=== PATIENT | female | born 1985 | race Caucasian/White ===

== ENCOUNTER 2023-08-26 14:01 | Emergency (ER) | payer SELFPAY ==
[~2023-08-26] VITALS: Ht 162.6 cm; Wt 75.0 kg
[2023-08-26 14:03] VITALS: O2SAT 100
[2023-08-26 15:01] LABS: BASOPHILS % 0.4 % (0.0-2.0); EOSINOPHILS % 0.2 % (0.0-5.0); HEMATOCRIT. 40.1 % (36.0-48.0); HEMOGLOBIN. 13.7 g/dL (12.0-16.0); LYMPHOCYTES % 9.4 % (20.0-50.0); MEAN CORPUSCULAR HEMOGLOBIN 31.8 pg (28.0-32.0); MEAN CORPUSCULAR HGB CONC 34.3 g/dL (31.0-37.0); MEAN CORPUSCULAR VOLUME 92.8 fL (81.0-99.0); MONOCYTES % 4.2 % (2.0-8.0); NEUTROPHILS % 85.8 % (40.0-76.0); RED BLOOD CELL COUNT 4.32 mill/uL (4.2-5.4); RED CELL DISTRIBUTION WIDTH 13.3 % (11.6-14.6); WHITE BLOOD COUNT 8.6 x1000/uL (4.5-11.0)
[2023-08-26 15:02] LABS: ACETAMINOPHEN < 2 ug/mL (10-30); CALCIUM 9.4 mg/dL (8.7-10.4); CARBON DIOXIDE 23 mEq/L (21-32); CHLORIDE 105 mEq/L (98-107); CREATININE 0.8 mg/dL (0.6-1.0); GLUCOSE 145 mg/dL (70-105); POTASSIUM 4.4 mEq/L (3.5-5.1); SODIUM 138 mEq/L (136-145); UREA NITROGEN BLOOD 14 mg/dL (9-23)
[2023-08-26 15:03] LABS: *AMPHETAMINES SCREEN URINE NEGATIVE (NEGATIVE); *BARBITURATES SCREEN URINE NEGATIVE (NEGATIVE); *BENZODIAZEPINES SCREEN URINE PRESUMPTIVE POSITIVE (NEGATIVE); *COCAINE SCREEN URINE NEGATIVE (NEGATIVE); CANNABINOID URINE SCREEN NEGATIVE (NEGATIVE); ECSTASY MDMA SCREEN URINE NEGATIVE (NEGATIVE); METHADONE URINE SCREEN Neg (NEGATIVE); OPIATES URINE SCREEN NEGATIVE (NEGATIVE); PHENCYCLIDINE URINE SCREEN NEGATIVE (NEGATIVE)
[2023-08-26 15:06] LABS: DIFFERENTIAL COMMENT 1
[2023-08-26 15:07] LABS: HCG SCREEN NEGATIVE
[2023-08-26 15:19] LABS: ETHANOL BLOOD < 10 mg/dL (<10)
[2023-08-26 15:26] LABS: PLATELET 253 x1000/uL (130-400)
[2023-08-26 15:27] LABS: MEAN PLATELET VOLUME 10.9 fl (7.4-10.4)
[2023-08-26] MEDS ORDERED: MELA5TAB19 MT (16:55)
[2023-08-26 17:40] VITALS: BP 120/78; PULSE 82; RESP 12; TEMP 99.6
== END 2023-08-26 17:52 | disposition home or self-care (01) ==
LOC: ER 14:12
DX: F43.9 Reaction to severe stress, unspecified (principal); F41.9 Anxiety disorder, unspecified
CPT/HCPCS: 36415; 80048; 80305; 80307; 80320; 80329; 81025; 84703; 85025; 99283; G0480